=== PATIENT | female | born 1990 | race Caucasian/White ===

== ENCOUNTER 2017-01-22 00:21 | Inpatient (IN) | payer BC ==
[2017-01-22] VITALS (15 sets, daily range): BP systolic 94–117; BP diastolic 52–76; PULSE 98–127; TEMP 36.8–37.4; O2SAT 97–100; Ht 175.3 cm; Wt 87.3 kg
[~2017-01-22] VITALS: Ht 175.3 cm; Wt 87.3 kg
[2017-01-22] MEDS ORDERED: LACTATED RINGER'S 1000ML 1,000 ML IV PRN (01:12)
[2017-01-22] MEDS ORDERED: LACTATED RINGER'S 1000ML 1,000 ML IV SCH ×2 (01:12→03:46)
[2017-01-22] MEDS ORDERED: PRENTAB26 PO (01:21)
[2017-01-22 02:20] LABS: HEMATOCRIT 34.5 % (37-47); MEAN CELL VOLUME 88.7 fL (80-100); MEAN CORPUSCULAR HEMOGLOBIN 30.1 pg (25-34); PLATELET COUNT 249 K/uL (130-400); RED BLOOD COUNT 3.89 M/uL (4.2-5.4); WHITE BLOOD COUNT 13.95 K/uL (4.8-10.8)
[2017-01-22 02:24] LABS: MEAN CORPUSCULAR HGB CONC 33.9 g/dl (32-36)
[2017-01-22] MEDS ORDERED: OXYTOCIN 30 UNITS/500ML NSS IV ONE (02:36)
[2017-01-22] MEDS ORDERED: BUTORPHANOL TARTRATE 1 MG/ML VIAL ONE (02:55)
--- NOTE | 2017-01-22 03:39 | Vaginal Delivery Summary ---
Vaginal Delivery Summary 26 F P0010 at 38.3 weeks delivered live female over intact perineum ARIN with Apgars 8/9. Placenta not delivered due to retained placenta. Several attempts made with no success in delivering placenta and due to hypotension decision made after about 30 minutes from delivery of baby to go to the OR for manual removal of placenta and D&C. Final sponge needle and instrument count are correct. EBL 1000 ml. Two units PRBC's to be transfused.
--- NOTE | 2017-01-22 03:47 | HISTORY & PHYSICAL EXAMINATION ---
DATE OF ADMISSION: 01/22/2017 REASON FOR ADMISSION: Term in labor. HISTORY OF PRESENT ILLNESS: The patient is a 26-year-old white female, para 0-1-0-0 at 38 and 3 weeks', A positive blood type, admitted in active labor. She had been 9 cm on admission, was ready to push, had a precipitous delivery of a live female with Apgars of 8 and 9. Placenta was retained and due to bleeding and hemorrhage a D\T\C is scheduled in the OR. PAST MEDICAL HISTORY: Significant for Lasik surgery, dental surgery and elective . SOCIAL HISTORY: Denies smoking, alcohol or drug use. ALLERGIES: No known allergies. MEDICATIONS: vitamins. PHYSICAL EXAMINATION: HEENT: Within normal limits. LUNGS: Clear to auscultation. COR: Regular rate and rhythm. ABDOMEN: Soft. EXTREMITIES: Within normal limits. No edema. NEUROLOGIC: Intact. ASSESSMENT: Term , delivered with retained placenta. PLAN: D\T\C and manual removal of placenta in the OR.
[2017-01-22] MEDS ORDERED: ALBUMIN HUMAN 5% 12.5 GM/250 ML VIAL IV ONE (03:54)
[2017-01-22] MEDS ORDERED: MIDAZOLAM HCL 1 MG/ML 2ML VIAL ONE ×2 (04:19→04:40)
[2017-01-22] MEDS ORDERED: FENTANYL CITRATE INJ 50 MCG/1 ML 2 ML VIAL ONE (04:20)
[2017-01-22] MEDS ORDERED: OXYTOCIN INJ 10 UNITS/ML VIAL ONE ×3 (04:27→04:44)
[2017-01-22] MEDS ORDERED: CEFAZOLIN SOD 1 GM VIAL ONE (04:28)
[2017-01-22] MEDS ORDERED: ETOMIDATE 2 MG/ML 20 ML VIAL IV ONE (04:41)
[2017-01-22] MEDS ORDERED: LIDOCAINE/EPINEPHRINE 1% 20 ML VIAL ONE (04:43)
[2017-01-22] MEDS ORDERED: LIDOCAINE MPF 1% INJ 30 ML SDV (L&D) INFIL ONE (05:02)
--- NOTE | 2017-01-22 05:04 | Anesthesiology Progress Note ---
Anesthesia Post Op Note Date & Time Jan 22, 2017 at 05:04 Notes Mental Status: alert / awake / arousable, participated in evaluation Pt Amnestic to Procedure: Yes Nausea / Vomiting: adequately controlled Pain: adequately controlled Airway Patency, RR, SpO2: stable & adequate BP & HR: stable & adequate Hydration State: stable & adequate Anesthetic Complications: no major complications apparent
[2017-01-22] MEDS ORDERED: OXYTOCIN IV SCH (05:05)
[2017-01-22] MEDS ORDERED: LACTATED RINGER S IV SCH (05:05)
[2017-01-22] MEDS ORDERED: FLUMAZENIL 0.1 MG/1 ML 10 ML VIAL IV PRN (05:15)
[2017-01-22] MEDS ORDERED: EpHEDrine SULFATE INJ 50 MG/ML AMP IV PRN (05:15)
[2017-01-22] MEDS ORDERED: NALOXONE HCL 0.4 MG/1 ML VIAL/CARP IV PRN (05:15)
[2017-01-22] MEDS ORDERED: HYDROCORTISONE ACETATE 25 MG SUPP PR PRN (05:15)
[2017-01-22] MEDS ORDERED: BENZOCAINE 20% AER SPR 82.5 GM CAN EXT PRN (05:15)
[2017-01-22] MEDS ORDERED: MEPERIDINE HCL 75 MG/ML CARP IV PRN (05:15)
[2017-01-22] MEDS ORDERED: ATROPINE SULFATE 0.1 MG/ML 5ML SYR IV PRN (05:15)
[2017-01-22] MEDS ORDERED: ONDANSETRON INJ 2 MG/ML 2 ML VIAL IV PRN ×2 (05:15)
[2017-01-22] MEDS ORDERED: LANOLIN OINT EXT PRN ×2 (05:15)
[2017-01-22] MEDS ORDERED: FENTANYL CITRATE INJ 50 MCG/1 ML 2 ML VIAL IV PRN (05:15)
[2017-01-22] MEDS ORDERED: OXYCODONE/ACETAMINOPHEN 5-325 TAB PO PRN ×2 (05:15)
[2017-01-22] MEDS ORDERED: MEPERIDINE HCL 50 MG/ML CARP IV PRN (05:15)
[2017-01-22] MEDS ORDERED: PROMETHAZINE HCL INJ 12.5 MG in SODIUM CHLORIDE 0.9% 50ML 50 ML IV PRN (05:15)
--- NOTE | 2017-01-22 05:16 | [facility] Post Operative Brief Note ---
Immediate Operative Summary Operative Date Jan 22, 2017. Pre-Operative Diagnosis Retained Placenta and 2nd Degree Laceration Post-Operative Diagnosis Same as preoperative Procedure(s) Performed Manual Removal Of Placenta and Repair of 2nd Degree Laceration D&C Surgeon Dr. Sergo Godinez Value Analysis Coordinator Surgeon(s) none Estimated Blood Loss 100ml Findings retained placenta Fluids (cc crystalloids) LR 500 ml. and 5%Albumin 250 ml. Specimens A;) Placenta Drains Arce Anesthesia MAC and 1%Lidocaine plain Complication(s) None Disposition Surgical ICU
--- NOTE | 2017-01-22 06:22 | OPERATIVE REPORT ---
DATE OF OPERATION: 01/22/2017 PREOPERATIVE DIAGNOSIS: hemorrhage with retained placenta. POSTOPERATIVE DIAGNOSES: Same plus second degree laceration. PROCEDURES: Manual removal of placenta, D\T\C and repair of second degree laceration. SURGEON: Sergo Godinez MD ANESTHESIA: MAC and 1% lidocaine plain. ESTIMATED BLOOD LOSS: 100 mL. FINDINGS: The patient is a 26-year-old female, para 0-0-1-0, who presented with a precipitous delivery. She had a normal delivery of a female without any difficulty and then after a short period of time the placenta was not delivered. The patient continued to have bleeding. A decision was made to bring the patient to the OR for manual removal of placenta and D\T\C. This was done under ultrasound guidance. A time-out was called prior to start of the procedure. DESCRIPTION OF PROCEDURE: After satisfactory MAC anesthesia, the patient was prepped and draped in usual sterile fashion. She was given 1 gram of Ancef preop. A Arce catheter was already inserted. Ultrasound was used to identify the placenta which was large and globular prior to the removal of the placenta. The placenta was then removed manually and intact. Following this, a large horseshoe curette was then used curetting out minimal amounts of tissue. The technical education teacher scanned the patient at that point and there was no retained placenta was noted. Repair of the second degree laceration was done in the usual manner using 3-0 Vicryl suture done in layers. At the end of the procedure the final sponge, needle and instrument counts were found to be correct. The final sponge, needle and instrument counts being correct, the patient was then placed supine on a stretcher. She was taken to the recovery room in stable condition. Total fluids 500 mL of LR and 250 mL of albumin 5%. EBL of 100 mL. I attest to the content of the Intraoperative Record and any orders documented therein. Any exceptio ns are noted below.
[2017-01-22 06:34] LABS: HEMATOCRIT 21.6 % (37-47); MEAN CELL VOLUME 88.9 fL (80-100); MEAN CORPUSCULAR HEMOGLOBIN 30.9 pg (25-34); MEAN CORPUSCULAR HGB CONC 34.7 g/dl (32-36); MEAN PLATELET VOLUME 10.1 fL (7.4-10.4); PLATELET COUNT 219 K/uL (130-400); RED BLOOD COUNT 2.43 M/uL (4.2-5.4); WHITE BLOOD COUNT 29.31 K/uL (4.8-10.8)
[2017-01-22 06:36] LABS: BUN/CREATININE RATIO 13.5 (10-20); CALCIUM 7.4 mg/dl (8.5-10.1); CREATININE 0.63 mg/dl (0.60-1.20); POTASSIUM 4.2 mmol/L (3.5-5.1)
--- NOTE | 2017-01-22 06:40 | DIAGNOSTIC IMAGING REPORT ---
INTRAOPERATIVE ULTRASOUND GUIDANCE (no charge) CLINICAL HISTORY: D\T\C. Possible retained products of conception. COMPARISON STUDY: No previous studies for comparison. FINDINGS: Ultrasound guidance was provided by the lead cytogenetic technologist. There was no radiologist input during the procedure IMPRESSION: Intraoperative ultrasound guidance provided by the lead cytogenetic technologist. Electronically signed by: Jacky Winslow M.D. 01/22/2017 6:38 AM Dictated Date/Time: 01/22/2017 6:37 AM
[2017-01-22 06:52] LABS: FIBRINOGEN* 306 mg/dl (184-400); INR 0.9 (0.9-1.1); PROTHROMBIN TIME (PATIENT) 9.9 SECONDS (9.0-12.0)
[2017-01-22 07:07] LABS: COMPLETE YES; LYMPH ABS # 1.26 K/uL (1.2-3.4); LYMPHOCYTE % 4.3 %; METAMYELOCYTE % 1.7 %; NEUTROPHILS % 93.1 %
[2017-01-22] MEDS: PRENATAL VITAMIN TAB PO SCH (08:53)
[2017-01-22] MEDS: DOCUSATE SODIUM 100 MG CAP PO SCH ×2 (08:53→20:30)
[2017-01-22 19:34] LABS: HEMATOCRIT 26.5 % (37-47)
[2017-01-23] MEDS ORDERED: LACTATED RINGER'S 1000ML 1,000 ML IV SCH (03:46)
[2017-01-23 04:15] VITALS: BP 109/68; PULSE 89; TEMP 37; O2SAT 98
--- NOTE | 2017-01-23 07:24 | OB/GYN Progress Note ---
MEDICAL SCRIBE Progress Note Date of Service: Jan 23, 2017. Patient is seen and examined. She feels well, no complaints. Ambulating without dizziness Voiding without difficulty Tolerating regular diet with out N&V Bleeding is minimal No fever/ chills/ CP/ SOB/ N&V/ Leg pain Breast feeding without problems Date Time Temp Pulse Resp B/P Pulse Ox O2 Delivery O2 Flow Rate FiO2 01/23/17 04:15 37.0 89 18 109/68 98 Room Air 01/22/17 23:15 Room Air 01/22/17 23:15 36.8 98 20 109/69 98 Room Air 01/22/17 19:48 37.1 112 18 94/61 98 Room Air 01/22/17 17:10 37.1 112 16 114/76 98 Room Air 01/22/17 16:40 37.0 120 22 104/66 98 Room Air 01/22/17 16:40 98 Room Air 01/22/17 15:06 37.4 127 18 113/56 97 01/22/17 14:36 37.1 116 18 98/52 99 01/22/17 14:06 36.9 103 16 97/53 99 01/22/17 13:51 36.9 99 20 113/56 99 Room Air 01/22/17 13:51 Room Air 01/22/17 13:51 36.9 99 20 113/56 99 01/22/17 13:36 37.1 106 18 111/68 99 01/22/17 12:45 36.9 109 18 108/64 100 01/22/17 12:08 37.1 115 20 117/68 100 01/22/17 11:37 36.9 101 18 103/57 100 01/22/17 11:08 36.8 110 18 96/54 100 01/22/17 10:54 37.0 122 18 94/55 100 01/22/17 10:54 37.0 114 16 94/55 100 01/22/17 10:42 37.1 118 16 98/56 98 Test 01/22/17 01:28 01/22/17 06:00 01/22/17 19:26 01/23/17 06:40 White Blood Count 13.95 H 29.31 #H Pending Red Blood Count 3.89 L 2.43 L Pending Mean Corpuscular Volume 88.7 88.9 Pending Mean Corpuscular Hemoglobin 30.1 30.9 Pending Mean Corpuscular Hemoglobin Concent 33.9 34.7 Pending RDW Standard Deviation 43.1 43.4 RDW Coefficient of Variation 13.4 13.4 Platelet Count 249 219 Pending Mean Platelet Volume 11.0 H 10.1 Hemoglobin 7.5 #L 9.1 L Pending Hematocrit 21.6 L 26.5 L Pending Neutrophils % (Manual) 93.1 Lymphocytes % (Manual) 4.3 Monocytes % (Manual) 0.9 Metamyelocytes % 1.7 Neutrophils # (Manual) 27.29 H Total Absolute Neutrophils 27.29 H Lymphocytes # (Manual) 1.26 Total Absolute Lymphocytes 1.26 Monocytes # (Manual) 0.26 Metamyelocytes # 0.50 H Red Blood Cell Morphology Unremarkable Prothrombin Time 9.9 Prothrombin Time INR 0.9 PTT 25.9 Partial Thromboplastin Ratio 1.0 Fibrinogen 306 Fibrin Degradation Products 10-40 H Sodium Level 141 Potassium Level 4.2 Chloride Level 108 H Carbon Dioxide Level 23 Anion Gap 10.0 Blood Urea Nitrogen 9 Creatinine 0.63 Est Creatinine Clear Calc Drug Dose 159.5 Estimated GFR () 143.5 Estimated GFR (Non- 123.8 BUN/Creatinine Ratio 13.5 Random Glucose 118 H Calcium Level 7.4 L PE: General: Alert, orientedx3, NAD Abd: soft, NT, fundus firm, below Umbilicus Perineum intact, Lochia rubra minimal Ext; NT, no edema AP: 26 yo s/p , retained placenta, removed in OR, ppd# 1 VSS Afebrile doing well s/p blood transfusion Continue routine care All questions were answered D/C home in am
[2017-01-23] MEDS: PRENATAL VITAMIN TAB PO SCH (07:51)
[2017-01-23] MEDS: DOCUSATE SODIUM 100 MG CAP PO SCH ×2 (07:51→19:58)
[2017-01-23] MEDS: IBUPROFEN 600 MG TAB PO PRN ×2 (07:52→23:37)
[2017-01-23 07:59] VITALS: BP 110/74; PULSE 80; TEMP 36.8; O2SAT 98
[2017-01-23 08:38] LABS: HEMATOCRIT 27.6 % (37-47); MEAN CELL VOLUME 86.8 fL (80-100); MEAN CORPUSCULAR HEMOGLOBIN 27.7 pg (25-34); MEAN CORPUSCULAR HGB CONC 31.9 g/dl (32-36); MEAN PLATELET VOLUME 11.2 fL (7.4-10.4); PLATELET COUNT 160 K/uL (130-400); RED BLOOD COUNT 3.18 M/uL (4.2-5.4); WHITE BLOOD COUNT 14.89 K/uL (4.8-10.8)
[2017-01-23 08:47] VITALS: O2SAT 98
[2017-01-23 12:07] VITALS: BP 99/65; PULSE 79; TEMP 37; O2SAT 97
[2017-01-23 12:11] VITALS: O2SAT 97
[2017-01-23 15:45] VITALS: BP 111/73; PULSE 101; TEMP 36.7; O2SAT 97
[2017-01-23] MEDS: FERROUS SULFATE 325 MG TAB PO SCH (19:58)
[2017-01-23] MEDS ORDERED: BISACODYL 5 MG TABEC PO ONE (22:00)
[2017-01-24 00:10] VITALS: BP 109/73; PULSE 96; TEMP 36.8
[2017-01-24] MEDS ORDERED: BISACODYL 10 MG SUPP PR PRN (05:15)
[2017-01-24 07:30] VITALS: BP 117/79; PULSE 87; TEMP 36.7; O2SAT 99
[2017-01-24] MEDS: DOCUSATE SODIUM 100 MG CAP PO SCH (07:37)
[2017-01-24] MEDS: PRENATAL VITAMIN TAB PO SCH (07:37)
[2017-01-24] MEDS: FERROUS SULFATE 325 MG TAB PO SCH (07:37)
[2017-01-24] MEDS ORDERED: FRRS300 PO (08:40)
[2017-01-24] MEDS ORDERED: MTR600X PO (08:40)
--- NOTE | 2017-01-24 08:42 | Discharge Instructions ---
Discharge Instructions Date of Service Jan 24, 2017. Admission Reason for Admission: LABOR Discharge Discharge Diagnosis / Problem: term deliverd/retained placenta removed manually Discharge Goals Goal(s): Routine recovery after delivery Activity Recommendations Activity Limitations: as noted below Lifting Limitations: gradually increase as tolerated Exercise/Sports Limitations: gradually increase as tolerated May Resume Sexual Activity: after follow-up appointment Driving or Machine Use: resume 3 days after discharge . Instructions / Follow-Up Instructions / Follow-Up ACTIVITY RECOMMENDATIONS: * Gradual return to full activity over the next 2-3 weeks. * No lifting - nothing heavier than baby over the next 2-3 weeks. * Do not engage in vigorous exercise, sexual activity or sports until cleared by your physician. * Do not drive or operate any motorized equipment until cleared by your physician. * You may shower/bathe daily. BREAST CARE: If you are not breast feeding: * Wear a supportive bra 24 hours a day for one to two weeks. * Avoid stimulating your breasts and nipples as much as possible during the first few weeks after delivery. * When taking a shower, have the warm water hit your back, not breasts. * When your breasts feel full, apply ice packs. Usually three to four times a day helps ease the discomfort. * Take a mild pain medication (Tylenol/Motrin) when you are uncomfortable. If breast feeding: * Use breast milk to lubricate nipples. Lansinoh cream may be used for sore nipples. You do not need to remove cream prior to breast feeding. If using a different brand of cream, check the label for directions regarding removal of cream prior to nursing. * Wear a supportive bra. * If having problems with breasts or breast feeding, call a mental health consultant or your health care provider. EPISIOTOMY CARE: After delivery, if you have an episiotomy (stitches), the following steps will ease discomfort and aid healing. * For the first 24 hours after delivery, place ice packs next to your episiotomy to help reduce swelling. * After the first 24 hour-period, sitz baths, either portable or in the tub, are suggested. A shower with a shower arm sprayed over the episiotomy may be comforting. * Lori care should be done after each voiding and bowel movement. Squirt warm water from a plastic bottle over the perineum (region of the body between the anus and urinary opening) and pat dry. * Use Dermoplast to ease discomfort. Shake container. [place] directly over the episiotomy. * Place a Tucks on a clean sanitary pad next to your episiotomy. OVER THE COUNTER MEDICATION: * For discomfort or pain, you may use Acetaminophen (Tylenol), Ibuprofen (Advil ), or Naproxen (Aleve) following the package directions. * For constipation you may use Colace following the package directions. SPECIAL CARE INSTRUCTIONS: When you are discharged from the hospital, it is important for you to follow the instructions listed below: * During the first week at home, you should be able to care for yourself and your baby. In addition, the usual light household activities are encouraged. * Limit your activities to the way you feel. Do not try to clean the house or move furniture. Be sensible. * If you actively engage in sports and have done so up until the time of your delivery, you may resume these activities as soon as you feel able. This may take up to one month or even longer. Use good judgment. * Continue to take your vitamins for at least six weeks after the of your baby. * Your diet need not be limited unless you were on a special diet before your delivery. Breast-feeding mothers need around 2500 calories per day and at least 64-80 ounces of fluid per day (8 to 10 glasses). * You should eat foods from the four major food groups. Crash diets or fad diets are to be avoided. Eating lean meats, fresh fruits and vegetables, low-fat dairy products, high fiber foods and a regular exercise program, will help you get back to your pre- weight without putting your health at risk. * Constipation is sometimes a problem after delivery. Take a mild laxative as needed. If breast feeding, Milk of Magnesia is acceptable to use. You may use a suppository or Fleets enema if no episiotomy. * A daily shower or tub bath is suggested. Be sure to thoroughly and gently dry the perineum. * A bloody vaginal discharge will usually continue until around four weeks post . A small amount of bleeding may continue for as long as six weeks. Vaginal discharge changes from the bright red bleeding after delivery to pink then brownish and finally yellowish-pink before becoming white and disappearing. * Bleeding may increase with activity. Your first period may come in 4-8 weeks. If you are breast feeding, your period may be delayed even longer. * Wren (sex) can begin whenever both you and your partner feel comfortable and do not have any form of genital infection. It is recommended that you wait until after your return appointment and discuss with your physician. If you have questions, please talk to your health care practitioner. A condom should be used to prevent infection and . * Foreplay, gentle intercourse and lubrication is very important the first several times to prevent pain. A water-based lubricant such as K-Y jelly or Astroglide may be used. * Tampons may be used six weeks after delivery. * Douching should be avoided for 6 weeks after delivery. * If you have RH negative blood and your baby is RH positive, you will receive RHOGAM by injection prior to discharge. The nurse will give you a card to keep with you that has the date and place that you received RHOGAM after delivery. * During your care, you had a Rubella screen done to check for the presence of rubella antibodies in your blood. If your test was negative, you will receive a Rubella vaccine prior to discharge. This vaccine may cause a fever, soreness at the injection site and flu-like symptoms. If these symptoms persist, notify your health care practitioner. is not advised for three months after a Rubella vaccine. There is a higher chance of having a baby with defects if conceived within three months of getting the vaccine. * If you were discharged 24 hours from delivery or before 48 hours: Visiting nurses will come to your home 48 hours after discharge to assess you and your baby. The visiting nurse will meet with you while you are in the hospital to arrange a time and get directions to your home. * Verbalizes understanding of car seat law as reviewed with patient nursing. * Car Seat hand-out given and reviewed with patient by nursing. * Shaken baby information reviewed with patient by nursing. Call you doctor if: * Heavy bleeding (saturating several pads an hour) or passing clots the size of your fist. * A fever >101 degrees F (38.3 degrees C) on two occasions four hours apart and/or chills. * Unusual pain in the pelvic or vaginal areas. * "Baby Blues" lasting longer than two weeks. If you have any questions or concerns, call your health care practitioner at . FOLLOW-UP VISIT: * Please call the office at to schedule a 6 week examination. It is important you keep this appointment. * It is important for you to make arrangements for either yearly or twice yearly check-ups thereafter. Current Hospital Diet Patient's current hospital diet: Regular OB Diet Discharge Diet Recommended Diet: Regular OB Diet Procedures Procedures Performed: Manual Removal Of Placenta and Repair of 2nd Degree Laceration D&C Pending Studies Studies pending at discharge: no Medical Emergencies . Who to Call and When: Medical Emergencies: If at any time you feel your situation is an emergency, please call 911 immediately. . Non-Emergent Contact Non-Emergency issues call your: Primary Care Provider . . "Provider Documentation" section prepared by Sergo Godinez. VTE Core Measure Inpt VTE Proph given/why not?: Treatment not indicated
--- NOTE | 2017-01-24 08:43 | OB/GYN Progress Note ---
MULTIMEDIA ENGINEER Progress Note Date of Service Jan 24, 2017. Subjective conversation w/ patient, physical exam Ambulation: ambulating normally Voiding: no voiding problems Passing Gas: Yes Diet Tolerance: Regular Diet Lochia: Small Feeding Type: Breast Feeding Objective Vital Signs Date Time Temp Pulse Resp B/P Pulse Ox O2 Delivery O2 Flow Rate FiO2 01/24/17 00:10 36.8 96 20 109/73 01/24/17 00:10 Room Air 01/23/17 15:45 97 Room Air 01/23/17 15:45 36.7 101 16 111/73 97 Room Air 1.0 01/23/17 12:11 97 Room Air 01/23/17 12:07 37.0 79 16 99/65 97 Room Air 01/23/17 08:49 16 01/23/17 08:47 98 Room Air Physical Exam General Appearance: WELL-APPEARING, NO APPARENT DISTRESS Abdomen: non tender, soft Fundus: Firm Extremities: normal range of motion, non-tender, normal inspection Assessment and Plan Post-, Post-Op Day Number: 2 Continue Routine Care: discharged home
[2017-01-24 10:34] VITALS: BP_DIAS 79; PULSE 87; TEMP 36.7
--- NOTE | 2017-02-03 10:39 | DISCHARGE SUMMARY ---
REASON FOR ADMISSION AND HOSPITAL COURSE: The patient is a 26-year-old female, para 0-0-1-0, who presented for a precipitous delivery. She delivered a live female without difficulty, a short time later the placenta was not delivered. She had a retained placenta despite waiting over 45 minutes, became hypotensive and was brought down to the operating room for a D\T\C and manual removal of placenta. This was done under general LMA anesthesia. The patient had manual removal of the placenta and D\T\C. No complications after this procedure. The patient was stable . She was discharged home on 01/24/2017 in stable condition. Home going instructions were given. Medications include iron and Motrin. Followup will be in one week. The patient's postop and hemoglobin was 8.8 and 27.6 ____ Regular diet on discharge. The patient on discharge is stable.
== END 2017-01-24 10:55 | disposition home or self-care (01) | DRG 767 ==
LOC: C.OPB 00:21 → C.LD 00:21 → C.OPB 01:15 → C.OBG 16:39 → EDSTATUS 02-02 00:20
PROVIDERS: ADMIT Obstetrics & Gynecology; ATTEND Obstetrics & Gynecology
PROC: 10D17ZZ Extraction of Products of Conception, Retained, Via Natural or Artificial Opening (ICD-10-PCS; principal; 2017-01-22 03:48)
PROC: 0KQM0ZZ Repair Perineum Muscle, Open Approach (ICD-10-PCS; principal; 2017-01-22 03:48)
PROC: 10E0XZZ Delivery of Products of Conception, External Approach (ICD-10-PCS; principal; 2017-01-22 03:48)
DX: O72.0 Third-stage hemorrhage (principal); O62.3 Precipitate labor; O70.1 Second degree perineal laceration during delivery; O99.02 Anemia complicating childbirth; D64.9 Anemia, unspecified; Z37.0 Single live birth; Z3A.38 38 weeks gestation of pregnancy

== ENCOUNTER 2019-11-21 22:34 | Inpatient (IN) ==
--- OUTSIDE RECORDS SUMMARY | 2019-11-21 22:38 | External Medical Summary | Continuity of Care Document ---
:1990 Author Name Nik Ram Address Unavailable Unavailable , Care Team Providers Name Role Phone Unavailable Unavailable Unavailable Líus ESCUDERO Unavailable [email or web address] Billy WOODSON Unavailable Unavailable Unavailable Unavailable Unavailable Problems Encounter for initial prescription of contraceptives (V25.02 ) (Z30.019) Vaginal candidiasis (112.1) (B37.3) Encounter for routine gynecological examination (V72.31) (Z0 1.419) Allergies and Adverse Reactions No Known Drug Allergies (Allergy) Medications NuvaRing 0.12-0.015 MG/24HR Vaginal Ring ; 1ring vaginally x 3weeks, 1 week ring out repeat KENA Staley 1 Ring Box Quantity: 1 Refills: 12 Fluconazole 150 MG Oral Tablet; Take one tablet by mouth now and repeat in 7 days. KENA Staley Start: 24-Nov-2014 Quantity: 2 Refills: 1 Procedures History of Oral Surgery Tooth Extraction Status: Completed Immunizations Immunizations not documented Family History Mother Family history of hypertension (V17.49) (Z82.49) Status: Act anish Grandmother Family history of diabetes mellitus (V18.0) (Z83.3) Status: Active Social History - Smoking Status Never smoker Plan of Treatment Planned Observations Planned Goals not documented Results No Known Results Results not documented
[2019-11-21] MEDS ORDERED: OXYTOCIN 30 UNITS/500 ML BAG IV PRN (22:53)
[2019-11-21 23:10] LABS: Hematocrit (blood only) 34.1 % (37-47); Hemoglobin 11.8 g/dL (12.0-16.0); Mean Corpuscular Hemoglobin 31.1 pg (25-34); Mean Platelet Volume 9.8 fL (7.4-10.4); Platelet Count 278 K/uL (130-400); RDW Coefficient of Variation 12.9 % (11.5-14.5); RDW Standard Deviation 41.9 fL (36.4-46.3); Red Blood Count 3.79 M/uL (4.2-5.4); White Blood Count 16.55 K/uL (4.8-10.8)
--- NOTE | 2019-11-21 23:20 | Obstetrical Progress Note ---
Date of Service November 21, 2019 Subjective Admit note29 F P1011 at 38 weeks admitted in active labor. GBS is negative. cervix 5 cm by nurse with history of precipitous first labor. Will admit in labor and planning on epidural. Results & Data Vital Signs (Past 12 Hours) Vital Signs Temp Pulse Resp BP 11/21/19 23:00 36.7 C 20 11/21/19 22:44 93 H 129/75
[2019-11-21 23:35] LABS: Mean Corpuscular Hgb Conc 34.6 g/dL (32-36)
[2019-11-22] MEDS: LACTATED RINGER'S 1,000 ML IV PRN ×3 (03:46→14:49)
[2019-11-22] MEDS ORDERED: ePHEDrine sulfate 50 MG/ML AMP ONE (08:31)
[2019-11-22] MEDS ORDERED: BUPIVACAINE 0.25% 30 ML VIAL ONE (08:31)
[2019-11-22] MEDS ORDERED: fentaNYL citrate 100 MCG/2 ML VIAL ONE (08:31)
[2019-11-22] MEDS ORDERED: fentaNYL 2MCG/ML ROPIV 1.25MG/ML 100 ML BAG EPI ONE (08:32)
[2019-11-22] MEDS ORDERED: OXYTOCIN 30 UNITS/500 ML BAG IV PRN ×2 (08:33→16:49)
--- NOTE | 2019-11-22 08:33 | Obstetrical Progress Note ---
Date of Service November 22, 2019 Subjective Met pt and spouse doing well FHR; CAT1 Ctx; irregular VE 6cm/80/-1 Will start Pitocin augmentation Requesting epidural analgesia Results & Data Vital Signs (Past 12 Hours) Vital Signs Temp Pulse Resp BP Pulse Ox 11/22/19 08:29 86 100 11/22/19 07:07 85 121/81 11/22/19 07:00 36.6 C 18 11/22/19 05:01 36.9 C 80 18 111/66 11/22/19 03:36 36.9 C 18 11/22/19 03:32 36.9 C 83 18 121/75 11/22/19 02:30 20 11/22/19 02:02 18 11/22/19 01:00 36.8 C 11/22/19 00:45 18 11/21/19 23:15 20 11/21/19 23:00 36.7 C 20 11/21/19 22:44 93 H 129/75
[2019-11-22] MEDS ORDERED: ePHEDrine sulfate 50 MG/ML AMP IV PRN (09:32)
[2019-11-22] MEDS ORDERED: NALBUPHINE HCL INJ 10 MG/ML AMP IV PRN (09:32)
[2019-11-22] MEDS ORDERED: DiphenhydrAMINE HCL 50 MG/ML VIAL IV PRN (09:32)
[2019-11-22] MEDS ORDERED: NALOXONE HCL 1 MG in SODIUM CHLORIDE 0.9% 1000ML 1,000 ML IV PRN (09:32)
[2019-11-22] MEDS ORDERED: PROMETHAZINE HCL 6.25 MG in SODIUM CHLORIDE 0.9% 50 ML IV PRN (09:32)
[2019-11-22] MEDS ORDERED: ONDANSETRON INJ 2 MG/ML 2 ML VIAL IV PRN (09:32)
[2019-11-22] MEDS ORDERED: NALOXONE HCL 0.4 MG/1 ML VIAL/CARP IV PRN (09:32)
[2019-11-22] MEDS ORDERED: fentaNYL 2MCG/ML ROPIV 1.25MG/ML 100 ML BAG EPI PRN (09:32)
--- NOTE | 2019-11-22 09:32 | Anesthesiology Consultation ---
Date of Service November 22, 2019 Assessment & Plan (1) Encounter for pre-operative examination: Chart Review Chart Review: Patient NOT seen in Pre Admission Testing and Acceptable Risk for Labor Epidural Consults Requested none ASA ASA2 Proposed Anesthesia Anesthesia Type: Labor Epidural Risk / Benefits Reviewed With: PT / POA / Parent / Guardian, Accepts Plan and Informed Consent Obtained History Height/Weight Height: 5 ft 9 in Weight: 87.997 kg Allergies Allergy/AdvReac Type Severity Reaction Status Date / Time No Known Allergies Allergy Unverified 01/22/17 01:21 Medications Home Medications Medication Instructions Recorded Confirmed Last Taken Multivit/Min/Iron/Fol Ac/Pren 1 tab PO DAILY #0 tab 01/22/17 11/21/19 Unknown ( Vitamin) Active Medications Generic Name Dose Route Start Last Admin Trade Name Freq PRN Reason Stop Dose Admin Lactated Ringer's 1,000 mls @ 125 mls/hr 11/21/19 22:53 11/22/19 08:48 Lr IV 11/23/19 22:52 125 mls/hr .Q8H PRN Administration L&D Protocol Protocol NPO Date Last Intake of Fluids: 11/22/19 Time Last Intake of Fluids: 07:00 Date Last Intake of Solids: 11/21/19 Time Last Intake of Solids: 20:00 Exercise / Class Metabolic Activity II 4-5 Yardwork/Stairs/Walk up hill Past Surgical History Surgical History H/O dilation and curettage Hx of LASIK [place] teeth removed Past Anesthesia History No Hx of Anesthesia Complications and No Family Hx of Anesthesia Complications History of PONV No Hx of PONV and No Hx of Motion Sickness Social History Smoking Status: Never smoker Hx Alcohol Use: No Hx Substance Use: No Physical Exam Vital Signs Last Vital Signs Temp 36.9 C 11/22/19 09:00 Pulse 94 H 11/22/19 09:29 Resp 20 11/22/19 09:00 BP 115/67 11/22/19 09:29 Pulse Ox 99 11/22/19 09:29 ENMT Mouth: no dentition abnormality Thyromental Distance: > or= 3.5 Finger Breadths Mallampati Class: II Neck normal visual inspection Respiratory normal respiratory effort Auscultation: lungs clear to auscultation bilaterally Cardiovascular Rate/Rhythm: regular rate and regular rhythm Psychiatric Orientation: alert Testing Laboratory Results 11/21/19 23:01
--- NOTE | 2019-11-22 11:31 | Anesthesiology Progress Note ---
Date of Service November 22, 2019 Anesthesia Post Procedure Vital Signs Vital Signs: Temp Pulse Resp BP Pulse Ox 11/22/19 11:24 89 99 11/22/19 11:19 101 H 99 11/22/19 11:14 88 91/55 L 98 11/22/19 11:09 91 H 99 11/22/19 11:04 96 H 99 11/22/19 11:00 36.9 C 18 11/22/19 10:59 96 H 99 11/22/19 10:58 104 H 112/62 11/22/19 10:54 87 98 11/22/19 10:49 96 H 99 11/22/19 10:45 90 122/60 11/22/19 10:44 92 H 99 11/22/19 10:39 86 99 11/22/19 10:34 81 99 11/22/19 10:29 86 100 11/22/19 10:28 88 110/61 11/22/19 10:24 85 99 11/22/19 10:19 82 98 11/22/19 10:14 83 99 11/22/19 10:13 81 110/61 11/22/19 10:09 83 100 11/22/19 10:04 82 100 11/22/19 09:59 84 100 11/22/19 09:56 82 18 112/69 11/22/19 09:54 82 100 11/22/19 09:51 92 H 18 112/57 L 11/22/19 09:49 90 100 11/22/19 09:45 94 H 117/63 11/22/19 09:44 94 H 100 11/22/19 09:43 87 18 114/58 L 11/22/19 09:41 100 H 120/62 11/22/19 09:39 93 H 117/59 L 99 11/22/19 09:38 93 H 20 118/65 11/22/19 09:35 90 109/64 11/22/19 09:34 91 H 98 11/22/19 09:33 93 H 20 111/65 11/22/19 09:31 91 H 109/65 11/22/19 09:29 94 H 20 115/67 99 11/22/19 09:27 93 H 110/67 11/22/19 09:25 97 H 20 116/80 11/22/19 09:24 92 H 98 11/22/19 09:23 90 118/82 11/22/19 09:21 95 H 20 129/79 11/22/19 09:19 99 H 129/74 98 11/22/19 09:18 104 H 20 125/88 11/22/19 09:14 92 H 100 11/22/19 09:09 96 H 99 11/22/19 09:08 96 H 128/75 11/22/19 09:04 92 H 98 11/22/19 09:00 36.9 C 20 11/22/19 08:59 89 99 11/22/19 08:54 88 99 11/22/19 08:49 90 100 11/22/19 08:44 89 100 11/22/19 08:39 91 H 100 11/22/19 08:34 86 100 11/22/19 08:29 86 100 11/22/19 07:07 85 121/81 11/22/19 07:00 36.6 C 18 11/22/19 05:01 36.9 C 80 18 111/66 11/22/19 03:36 36.9 C 18 11/22/19 03:32 36.9 C 83 18 121/75 11/22/19 02:30 20 11/22/19 02:02 18 11/22/19 01:00 36.8 C 11/22/19 00:45 18 11/21/19 23:15 20 11/21/19 23:00 36.7 C 20 11/21/19 22:44 93 H 129/75 Transfer of Care Handoff Completed per policy Notes Mental Status: alert / awake / arousable Nausea / Vomiting: adequately controlled Pain: adequately controlled Airway Patency, RR, SpO2: stable & adequate BP & HR: stable & adequate Hydration State: stable & adequate Neuraxial Anesthesia: was administered and sensory block is resolving Anesthetic Complications: no major complications apparent
--- NOTE | 2019-11-22 15:30 | Obstetrical Progress Note ---
Date of Service November 22, 2019 Subjective Pt doing well FHR: CAT1 Ctx; 2-3mins VE; 8cm with bulging membranes Pitocin Pt wants AROM AROM performed with amnio hook- clear fluid Results & Data Vital Signs (Past 12 Hours) Vital Signs Temp Pulse Resp BP Pulse Ox 11/22/19 15:24 90 100 11/22/19 15:19 85 100 11/22/19 15:14 80 100 11/22/19 15:13 90 118/69 11/22/19 15:09 88 100 11/22/19 15:04 88 100 11/22/19 14:59 81 110/61 100 11/22/19 14:54 86 100 11/22/19 14:49 96 H 100 11/22/19 14:46 36.7 C 18 11/22/19 14:44 79 100 11/22/19 14:43 82 110/58 L 11/22/19 14:39 77 100 11/22/19 14:34 93 H 100 11/22/19 14:29 73 104/57 L 100 11/22/19 14:24 88 100 11/22/19 14:19 79 100 11/22/19 14:14 93 H 100/57 L 100 11/22/19 14:09 77 100 11/22/19 14:04 81 100 11/22/19 13:59 84 104/51 L 100 11/22/19 13:54 79 100 11/22/19 13:49 75 100 11/22/19 13:44 80 88/49 L 100 11/22/19 13:39 85 100 11/22/19 13:34 79 100 11/22/19 13:29 82 100 11/22/19 13:28 80 101/58 L 11/22/19 13:24 93 H 100 11/22/19 13:19 82 97/54 L 100 11/22/19 13:14 106 H 100 11/22/19 13:13 74 88/51 L 11/22/19 13:09 75 99 11/22/19 13:04 78 98 11/22/19 12:59 83 100 11/22/19 12:58 77 93/50 L 11/22/19 12:54 78 99 11/22/19 12:51 18 11/22/19 12:49 102 H 100 11/22/19 12:45 82 107/66 11/22/19 12:44 82 99 11/22/19 12:39 83 99 11/22/19 12:34 83 99 11/22/19 12:30 16 11/22/19 12:29 84 99 11/22/19 12:28 88 109/64 11/22/19 12:24 83 98 11/22/19 12:19 89 99 11/22/19 12:14 87 99 11/22/19 12:13 87 107/64 11/22/19 12:09 87 98 11/22/19 12:04 87 98 11/22/19 11:59 92 H 103/62 98 11/22/19 11:54 91 H 98 11/22/19 11:51 81 107/61 11/22/19 11:50 100 H 99/55 L 11/22/19 11:49 95 H 100 11/22/19 11:45 104 H 109/70 11/22/19 11:44 106 H 99 11/22/19 11:39 79 98 11/22/19 11:34 86 100 11/22/19 11:31 89 93/55 L 11/22/19 11:29 92 H 100 11/22/19 11:24 89 99 11/22/19 11:19 101 H 99 11/22/19 11:14 88 91/55 L 98 11/22/19 11:09 91 H 99 11/22/19 11:04 96 H 99 11/22/19 11:00 36.9 C 18 11/22/19 10:59 96 H 99 11/22/19 10:58 104 H 112/62 11/22/19 10:54 87 98 11/22/19 10:49 96 H 99 11/22/19 10:45 90 122/60 11/22/19 10:44 92 H 99 11/22/19 10:39 86 99 11/22/19 10:34 81 99 11/22/19 10:29 86 100 11/22/19 10:28 88 110/61 11/22/19 10:24 85 99 11/22/19 10:19 82 98 11/22/19 10:14 83 99 11/22/19 10:13 81 110/61 11/22/19 10:09 83 100 11/22/19 10:04 82 100 11/22/19 09:59 84 100 11/22/19 09:56 82 18 112/69 11/22/19 09:54 82 100 11/22/19 09:51 92 H 18 112/57 L 11/22/19 09:49 90 100 11/22/19 09:45 94 H 117/63 11/22/19 09:44 94 H 100 11/22/19 09:43 87 18 114/58 L 11/22/19 09:41 100 H 120/62 11/22/19 09:39 93 H 117/59 L 99 11/22/19 09:38 93 H 20 118/65 11/22/19 09:35 90 109/64 11/22/19 09:34 91 H 98 11/22/19 09:33 93 H 20 111/65 11/22/19 09:31 91 H 109/65 11/22/19 09:29 94 H 20 115/67 99 11/22/19 09:27 93 H 110/67 11/22/19 09:25 97 H 20 116/80 11/22/19 09:24 92 H 98 11/22/19 09:23 90 118/82 11/22/19 09:21 95 H 20 129/79 11/22/19 09:19 99 H 129/74 98 11/22/19 09:18 104 H 20 125/88 11/22/19 09:14 92 H 100 11/22/19 09:09 96 H 99 11/22/19 09:08 96 H 128/75 11/22/19 09:04 92 H 98 11/22/19 09:00 36.9 C 20 11/22/19 08:59 89 99 11/22/19 08:54 88 99 11/22/19 08:49 90 100 11/22/19 08:44 89 100 11/22/19 08:39 91 H 100 11/22/19 08:34 86 100 11/22/19 08:29 86 100 11/22/19 07:07 85 121/81 11/22/19 07:00 36.6 C 18 11/22/19 05:01 36.9 C 80 18 111/66 20 03:36 36.9 C 18 11/22/19 03:32 36.9 C 83 18 121/75
[2019-11-22] MEDS ORDERED: METHYLERGONOVINE MALEATE 0.2 MG/ML AMP ONE (16:23)
[2019-11-22] MEDS ORDERED: miSOPROStoL 200 MCG TAB ONE (16:44)
[2019-11-22] MEDS ORDERED: BENZOCAINE 20% AER SPR 82.5 GM CAN EXT PRN (16:49)
[2019-11-22] MEDS ORDERED: DIPHTHERIA/TETANUS/PERTUSSIS 0.5 ML SYR/VIAL IM ONE (16:49)
[2019-11-22] MEDS ORDERED: bisacodyL 10 MG SUPP PR PRN (16:49)
[2019-11-22] MEDS ORDERED: HYDROCORTISONE ACETATE 25 MG SUPP PR PRN (16:49)
[2019-11-22] MEDS ORDERED: ACETAMINOPHEN 325 MG TAB PO PRN (16:49)
[2019-11-22] MEDS ORDERED: SUPERCREAM 0.870% 15 GM JAR EXT PRN (16:49)
[2019-11-22] MEDS ORDERED: IBUPROFEN 600 MG TAB PO PRN (16:49)
[2019-11-22] MEDS ORDERED: miSOPROStoL 200 MCG TAB PR ONE (16:49)
[2019-11-22] MEDS ORDERED: METHYLERGONOVINE MALEATE 0.2 MG/ML AMP IM ONE (16:49)
--- NOTE | 2019-11-22 18:07 | Anesthesia Procedure Note ---
Date of Service November 22, 2019 Anesthesia Post Epidural Note Vital Signs Vital Signs: Temp Pulse Resp BP Pulse Ox 36.7 C 81 20 125/63 99 11/22/19 16:50 11/22/19 17:58 11/22/19 17:50 11/22/19 17:58 11/22/19 16:49 Notes Mental Status: alert / awake / arousable Nausea / Vomiting: adequately controlled Pain: adequately controlled Airway Patency, RR, SpO2: stable & adequate BP & HR: stable & adequate Hydration State: stable & adequate Neuraxial Anesthesia: was administered and sensory block is resolving Anesthetic Complications: no major complications apparent and Pt Satisfied with anesthetic care Epidural: Removed without complications and With tip intact
[2019-11-22] MEDS: DOCUSATE SODIUM 100 MG CAP PO SCH (21:11)
--- NOTE | 2019-11-23 01:59 | Delivery Summary ---
DATE OF OPERATION: 11/22/2019 DELIVERY NOTE The patient delivered a live in left occiput anterior presentation with right hand compound presentation. There was no nuchal cord. Infant was delivered, placed on mother's abdomen. Cord was clamped and cut after 1 minute. Cord blood was obtained. Placenta was spontaneously delivered. Inspection of the placenta showed grossly normal looking placenta. Inspection of the perineum showed second-degree midline laceration, which is repaired with 2-0 Vicryl. Rectal exam post repair showed good sphincter tone. Estimated blood loss is 400 mL. Baby and mother are doing well in recovery. All instruments were removed from the vagina and accounted for x2 including sponges, needles and retractors. I attest to the content of the Intraoperative Record and any orders documented therein. Any exception s are noted below.
[2019-11-23 06:30] LABS: Hematocrit (blood only) 36.3 % (37-47); Hemoglobin 12.2 g/dL (12.0-16.0); Mean Corpuscular Hemoglobin 30.7 pg (25-34); Mean Corpuscular Hgb Conc 33.6 g/dL (32-36); Mean Corpuscular Volume 91.2 fL (80-100); Mean Platelet Volume 10.9 fL (7.4-10.4); Platelet Count 247 K/uL (130-400); RDW Coefficient of Variation 13.1 % (11.5-14.5); RDW Standard Deviation 43.1 fL (36.4-46.3); Red Blood Count 3.98 M/uL (4.2-5.4)
[2019-11-23] MEDS ORDERED: PRENATAL VITAMIN 1 TAB PO SCH (08:00)
[2019-11-23] MEDS: DOCUSATE SODIUM 100 MG CAP PO SCH (08:03)
--- NOTE | 2019-11-23 08:11 | Obstetrical Progress Note ---
Date of Service November 23, 2019 Subjective Patient is seen and examined. She feels well, no complaints. Wants to be discharged tonight. Ambulating without dizziness Voiding without difficulty Tolerating regular diet with out N&V Bleeding is minimal No fever/ chills/ CP/ SOB/ N&V/ Leg pain Breast feeding without problems Vital Signs Temp Pulse Resp BP Pulse Ox 11/23/19 04:00 37.1 C 75 18 113/73 11/22/19 23:30 36.5 C 76 16 118/78 11/22/19 20:20 36.9 C 98 H 18 133/70 97 Lab Results 11/21/19 11/23/19 Range/Units 23:01 05:38 WBC 16.55 H 17.30 H (4.8-10.8) K/uL RBC 3.79 L 3.98 L (4.2-5.4) M/uL Hgb 11.8 L 12.2 (12.0-16.0) g/dL Hct 34.1 L 36.3 L (37-47) % MCV 90.0 91.2 (80-100) fL MCH 31.1 30.7 (25-34) pg MCHC 34.6 33.6 (32-36) g/dL RDW Std Deviation 41.9 43.1 (36.4-46.3) fL RDW Coeff of Ca 12.9 13.1 (11.5-14.5) % Plt Count 278 247 (130-400) K/uL MPV 9.8 10.9 H (7.4-10.4) fL PE: General: Alert, orientedx3, NAD Abd: soft, NT, fundus firm, below Umbilicus Perineum intact, Lochia rubra minimal Ext; NT, no edema AP: 29 yo s/p , ppd# 1 VSS Afebrile doing well Continue routine care Desires d/c this evening Repeat CBC for f/u Elevated WBCC All questions were answered D/C home , f/u in office Results & Data Vital Signs (Past 12 Hours) Vital Signs Temp Pulse Resp BP Pulse Ox 11/23/19 04:00 37.1 C 75 18 113/73 11/22/19 23:30 36.5 C 76 16 118/78 11/22/19 20:20 36.9 C 98 H 18 133/70 97
[2019-11-23 17:25] LABS: Basophils # (auto) 0.02 K/uL (0-0.2); Basophils % (auto) 0.1 %; Eosinophils % (auto) 0.7 %; Hematocrit (blood only) 34.1 % (37-47); Hemoglobin 11.7 g/dL (12.0-16.0); Immature Granulocytes # (auto) 0.08 K/uL (0.00-0.02); Immature Granulocytes % (auto) 0.5 %; Lymphocytes # (auto) 1.67 K/uL (1.2-3.4); Lymphocytes % (auto) 10.9 %; Mean Corpuscular Hgb Conc 34.3 g/dL (32-36); Mean Corpuscular Volume 90.2 fL (80-100); Mean Platelet Volume 9.8 fL (7.4-10.4); Monocytes # (auto) 1.39 K/uL (0.11-0.59); Monocytes % (auto) 9.1 %; Neutrophils # (auto) 12.02 K/uL (1.4-6.5); Neutrophils % (auto) 78.7 %; Platelet Count 259 K/uL (130-400); RDW Coefficient of Variation 13.3 % (11.5-14.5); Red Blood Count 3.78 M/uL (4.2-5.4); White Blood Count 15.28 K/uL (4.8-10.8)
[2019-11-23] MEDS ORDERED: bisacodyL 5 MG TABEC PO SCH (20:00)
== END 2019-11-23 19:05 | disposition home or self-care (01) | DRG 807 ==
LOC: OPB 22:34 → 4S1 22:36 → 4S2 11-22 19:35